=== PATIENT | female | born 1960 | race American Indian/Alaskan Native ===

== ENCOUNTER 2020-01-06 06:12 | Inpatient (IN) | payer OTHER ==
[~2020-01-06] VITALS: Ht 154.9 cm; Wt 80.7 kg
--- NOTE | ~2020-01-06 | O ---
[facility] [place] [address] OPERATIVE REPORT Name: SHREE SOLIS Room #: 437-P ADM IN M.R.#: [id number] Admission: 01/06/20 Attend Phys: Tonny Altman MD Discharge: Date of : 58 Report #: [id number] THIS REPORT FOR: cc: FRANCES - Family physician unknown FAM - Family physician unknown Tonny Altman MD ~ CC: FRANCES unknown Tonny Altman DATE OF SERVICE: 01/06/2020 PREOPERATIVE DIAGNOSES: 1. Morbid obesity. 2. Obstructive sleep apnea. 3. Osteoarthritis. 4. Hypertension. 5. Diabetes mellitus. POSTOPERATIVE DIAGNOSES: 1. Morbid obesity. 2. Obstructive sleep apnea. 3. Osteoarthritis. 4. Hypertension. 5. Diabetes mellitus. OPERATIVE PROCEDURE DONE: Laparoscopic vertical sleeve gastrectomy. OPERATING SURGEON: Tonny Altman MD INDICATIONS FOR THE PROCEDURE: The patient is a 59-year-old female who presented with features of morbid obesity. She was noted to have a weight of 85 kilograms with a BMI of 36 with the above listed comorbidities. The patient was advised laparoscopic vertical sleeve gastrectomy and possible hiatal hernia repair. The patient showed understanding and agreed to proceed. DESCRIPTION OF PROCEDURE: After explaining to the patient in detail and informed consent was obtained, the patient was identified in the preoperative holding area. The patient was transferred to the operating room and was placed in supine position. Sequential compressive devices were placed for DVT prophylaxis. Preoperative antibiotics were given. After induction of anesthesia, the abdomen was prepped and draped in a sterile fashion. Through a left upper quadrant 1 cm incision and using Optiview technique, I attempted to place a 5 mm trocar, which was unsuccessful. I attempted again on the right upper quadrant and then Veress needles, all were unsuccessful as the patient had a very floppy abdomen; therefore, I proceeded with a Ariana technique. Through a 2 cm supraumbilical incision, identified the fascia. The fascia was opened up [facility] [address] [place] [address] OPERATIVE REPORT Name: SHREE SOLIS Room #: 437-P [facility]#: [id number] Admission: 01/06/20 Attend Phys: Tonny Altman MD Discharge: Date of : 58 Report #: [id number] and 5 mm trocar was then placed and pneumoperitoneum was created. I then introduced a 5 mm trocar in the left upper quadrant, 1 in the right upper quadrant, 12 mm trocar in the right mid abdomen, and through a 1 cm incision in the epigastrium, a Lefty retractor was introduced and the left lobe of the liver was retracted. On initial inspection, I did not see any evidence of hiatal hernia. I started to take down the gastroepiploic vessels using the Harmonic scalpel. I continued to divide these blood vessels along the greater curvature and then the short gastrics using the Harmonic. I mobilized the gastrophrenic ligament and the angle of His. Distally, the gastroepiploic vessels were mobilized up to about 4 cm proximal to the pylorus. We then introduced a 36-Marshallese ViSiGi tube into the stomach and stomach was suctioned out. This was placed along the lesser curve of the stomach. Stomach was then divided in a vertical fashion with multiple Endo-JANNY Gu-Win staplers, 4 green loads, 1 gold load and a blue load was then used to divide the stomach in a vertical fashion with multiple Endo-JANNY stapler with Niharika-Strips. An air leak test was performed by instilling air into the stomach and by irrigation of fluid along the staple line. There was no leak that was noted. Absolute hemostasis was ensured. Thorough saline irrigation was given. The abdomen was then deflated. The sleeve gastrectomy specimen and the Lefty retractor were removed. The orogastric tube was removed. The 12 mm port site and the umbilical incision was closed in 2 layers using 0 Vicryl for the fascia using a PMI and skin was closed with 4-0 Monocryl for all the incisions. Dermabond was applied. The patient was stable at the end of the procedure. The patient was awoken from anesthesia and was transferred to the recovery room in stable condition. ESTIMATED BLOOD LOSS: Minimal. CONDITION OF THE PATIENT: Stable. FLUIDS GIVEN: Per anesthesia notes. SPECIMEN SENT: Sleeve gastrectomy specimen. COMPLICATIONS: None. ANESTHESIA: General anesthesia. By: [id number] Tonny Altman MD /nt
[~2020-01-06 06:12] MED LIST: ASPIR 8181 M1 PO; COZAAR 50 MG TA50 M1 PO; CYMBALTA30 MG PO; CYMBALTA60 MG PO; GABAPENTIN100 MG PO; GLUCOPHAGE850 MG PO; NEURONTIN 400400 M1 PO; NORVASC5 M1 PO; TRAMADOL 50 MG50 MG PO; VITAMIN B-125000 MCG SUBLING
[2020-01-06 06:42] VITALS: BP 118/59
[2020-01-06 06:47] LABS: HEMATOCRIT 41.4 % (37.0-47.0); HEMOGLOBIN 14.3 gm/dL (12.0-15.0); MCH 31.5 pg (26.0-34.0); MCHC 34.4 g/dL (28.0-37.0); MCV 91.7 fL (80.0-100.0); RBC 4.52 mil/uL (4.20-5.00); RDW 13.6 % (10.5-14.5); WBC 6.8 thou/uL (4.0-11.0)
[2020-01-06 07:11] LABS: CALCIUM 9.2 mg/dL (8.5-10.1); CREATININE 0.6 mg/dL (0.6-1.0); POTASSIUM 3.3 mmol/L (3.5-5.1)
[2020-01-06 07:14] LABS: ALBUMIN 3.6 g/dL (3.4-5.0); TOTAL BILIRUBIN 0.5 mg/dL (0.2-1.0); TOTAL PROTEIN 7.9 g/dL (6.4-8.2)
[2020-01-06 11:35] VITALS: BP 121/58
[2020-01-06 12:30] VITALS: BP 114/67
--- NOTE | 2020-01-06 13:04 | NUR ---
PT ARRIVED ON THE UNIT FROM OPERATATION. PT IS AOX4, VSS, PAIN IN ABD AREA 01/08. PT DAUGHTER TRANSLATES FOR HER, DR. AVALOS PUT ORDERS AND PT RECEIVED MORPHINE AND ZOFRAN FOR PAIN AND NAUSEA. PT DAUGHTER IS AT BEDSIDE. PT 5 SURGICAL SITES ARE CDI. PT REMAINS NPO. [facility] PT. NURSE EXPLAINED CALL LIGHT, WILL CONTINUE TO MONITOR.
[2020-01-06 15:30] VITALS: BP 138/64
[2020-01-06 19:06] VITALS: BP 137/56
[2020-01-07 01:06] LABS: GLYCOHEMOGLOBIN (HGB A1C) 5.9 % (4.8-5.6)
--- NOTE | 2020-01-07 04:00 | NUR ---
ASSESSED AT START OF SHIFT. PT RESTING IN BED WITH DTR BY BEDSIDE. C/O NAUSEA ZOFRAN GIVENX1 NO EMESIS. IV INTACT AND FLIUDS INFUISING. PT NPO THIS NIGHT. 5 LAPSITES INTACT. FALL PREC IN PLACE AND CALL LIGHT IN REACH WILL CONT WITH POC TILL EOS.
[2020-01-07 10:00] VITALS: BP 145/59
--- NOTE | 2020-01-07 13:45 | NUR ---
Chart reviewed and case discussed with the care team. Pt up ad yrn. Dtr at bedside. Pt hoping to dc home today and awaiting dc orders from surgery. No cm interventions indicated. Pt has health ins in place for f/u care and home cpap.
[2020-01-07] MEDS ORDERED: HYDROCODONE-ACE15 ML PO (15:56)
[2020-01-07 16:09] VITALS: BP 145/59
== END 2020-01-07 16:34 | disposition home or self-care (01) | DRG 621 ==
LOC: EDBD → OR 06:12 → TBA 06:13 → PRE 08:33 → OR 10:56 → 4S 10:56 → PRE 12:00 → OR 13:14 → PRE 14:25 → EDSTATUS 14:45 → OR 14:46 → 4S 01-07 16:34
PROVIDERS: ADMIT Surgery; ATTEND Surgery
PROC: 5A09357 Assistance with Respiratory Ventilation, Less than 24 Consecutive Hours, Continuous Positive Airway Pressure (ICD-10-PCS; principal; 2020-01-06)
PROC: 0DB64Z3 Excision of Stomach, Percutaneous Endoscopic Approach, Vertical (ICD-10-PCS; principal; 2020-01-06)
DX: E66.01 Morbid (severe) obesity due to excess calories (principal); G47.33 Obstructive sleep apnea (adult) (pediatric); E11.9 Type 2 diabetes mellitus without complications; I10 Essential (primary) hypertension; Z20.828 Contact with and (suspected) exposure to other viral communicable diseases; Z68.33 Body mass index [BMI] 33.0-33.9, adult; Z79.899 Other long term (current) drug therapy; Z79.82 Long term (current) use of aspirin
CPT/HCPCS: 10102; 50010; 50101; 50222; 50249; 50386; 50555; 50739; 50740; 51489; 52205; 53307; 53310; 53311; 54022; 54118; 56462; 56525; 56526; 57092; 62110; 62900; 70005